=== PATIENT | female | born 1970 | race Caucasian/White ===

== ENCOUNTER 2017-03-27 16:01 | Emergency (ER) | payer MEDICAID ==
[2017-03-27 16:12] VITALS: BMI 40.7
[2017-03-27 16:22] VITALS: TEMP 98.2
[2017-03-27] MEDS ORDERED: Sodium Chloride 0.9% 1,000 ML IV STA (16:24)
--- NOTE | 2017-03-27 16:31 | ED PDOC ---
Arrival/HPI - General Time Seen by Provider: 03/27/17 16:10 Historian: Patient - History of Present Illness Narrative History of Present Illness (Text): 03/27/17 16:20 This 46 yo female with a pmh anemia, asthma, hypertension, diabetes, obesity, hypothyroidism, presents to this emergency department complaining of heavy menstrual period x 2 weeks. Patient stated she has been changing approx. 5 pads daily. Patient noted similar symptom last month. Patient stated she has never had this problem before, except for last month. Patient feels pelvic cramping. Denies urinary symptoms, fever, shortness of breath, chest pain, urinary symptoms, vaginal discharge, dizziness, headache, recent travel, sick contact, trauma, leg swelling, or abnormal gait. Patient stated she saw her pmd for this, and she was given a referral to follow up [facility]. She was also given prescription for Iron supplement. She made an appointment for [facility] for April 06, 2017 Time/Duration: Other (15 days) Symptom Course: Unchanged Context: Home Past Medical History - Provider Review Nursing Documentation Reviewed: Yes - Infectious Disease Hx of Infectious Diseases: None - Tetanus Immunization Tetanus Immunization: Unknown - Cardiac Hx Hypertension: Yes - Pulmonary Hx Asthma: Yes - Neurological Hx Neurological Disorder: No - HEENT Hx HEENT Disorder: No - Renal Hx Renal Disorder: No - Endocrine/Metabolic Hx Hyperthyroidism: Yes Hx Hypothyroidism: Yes - Hematological/Oncological Hx Anemia: Yes - Integumentary Hx Dermatological Disorder: No - Musculoskeletal/Rheumatological Hx Arthritis: Yes (both knees) - Gastrointestinal Hx Gastrointestinal Disorders: No - Genitourinary/Gynecological Hx Genitourinary Disorders: No - Psychiatric Hx Depression: No Hx Substance Use: No - Surgical History Hx Cholecystectomy: Yes - Suicidal Assessment Feels Threatened In Home Enviroment: No Family/Social History Smoking Status: Never Smoked Hx Alcohol Use: No Hx Substance Use: No Hx Substance Use Treatment: No Allergies/Home Meds Allergies/Adverse Reactions: Allergies aspirin Allergy (Verified 03/27/17 16:23) SWELLING Penicillins Allergy (Verified 03/27/17 16:23) SHORTNESS OF BREATH Home Medications: Home Meds Medication Instructions Recorded Confirmed Metformin Hydrochloride [Metformin] 850 mg PO BID 07/30/13 03/27/17 Omeprazole 1 tab PO PRN PRN 07/23/15 03/27/17 SITagliptin [Januvia] 100 mg PO DAILY 07/23/15 03/27/17 Albuterol Sulfate [Proair Hfa] 2 puff IH PRN PRN 01/31/16 03/27/17 Fluticasone/Salmeterol 250/50 1 puff IH BID PRN 01/31/16 03/27/17 [Advair Diskus 250/50] Losartan Potassium 50 mg PO DAILY 01/31/16 03/27/17 Gabapentin [Neurontin] 300 mg PO TID 02/07/16 03/27/17 Alogliptin Benzoate [Alogliptin] 25 mg PO DAILY 03/27/17 03/27/17 Leflunomide [Arava] 20 mg PO DAILY 03/27/17 03/27/17 Levothyroxine [Synthroid] 88 mcg PO DAILY 03/27/17 03/27/17 Mirtazapine [Remeron] 45 mg PO DAILY 03/27/17 03/27/17 Physical Exam Vital Signs Temp Pulse Resp BP Pulse Ox 03/27/17 16:22 98.2 F 98 H 18 151/101 H 98 Temperature: Afebrile Blood Pressure: Hypertensive Pulse: Regular Respiratory Rate: Normal Appearance: Positive for: Well-Appearing, Non-Toxic, Comfortable Pain Distress: None Mental Status: Positive for: Alert and Oriented X 3 - Systems Exam Head: Present: Atraumatic, Normocephalic Pupils: Present: PERRL Extroacular Muscles: Present: EOMI Conjunctiva: Present: Normal Mouth: Present: Moist Mucous Membranes Neck: Present: Normal Range of Motion Respiratory/Chest: Present: Clear to Auscultation, Good Air Exchange. No: Respiratory Distress, Accessory Muscle Use Cardiovascular: Present: Regular Rate and Rhythm, Normal S1, S2. No: Murmurs Abdomen: Present: Normal Bowel Sounds. No: Tenderness, Distention, Peritoneal Signs, Rebound, Guarding Genitourinary/Pelvic Exam: Present: Normal External Genitalia, Vaginal Bleeding (trace of blood seen on vagial canal. No lesion seen. No active bleeding seen. Ms. Vanessa Khan RN was family psychologist). No: Vaginal Discharge Back: Present: Normal Inspection. No: CVA Tenderness Upper Extremity: Present: Normal Inspection, Normal ROM, NORMAL PULSES, Neurovascularly Intact, Capillary Refill < 2s. No: Cyanosis, Edema Lower Extremity: Present: Normal Inspection, NORMAL PULSES, Normal ROM, Neurovascularly Intact, Capillary Refill < 2 s. No: Edema, CALF TENDERNESS Neurological: Present: GCS=15, CN II-XII Intact, Speech Normal, Motor Func Grossly Intact, Normal Sensory Function, Normal Cerebellar Funct, Gait Normal, Memory Normal, Other (Patient has a normal gait. Romberg test was negative) Skin: Present: Warm, Dry, Normal Color. No: Rashes Psychiatric: Present: Alert, Oriented x 3, Normal Insight, Normal Concentration Medical Decision Making ED Course and Treatment: 03/27/17 17:37 Patient is resting comfortably, does not have active vaginal bleeding, denies any chest pain, shortness of breath, or lightheadedness. Patient was not orthostatic in ED. Patient was instructed to follow up with her HAND EDGER in 1-2 days, and to return to ED for worsening symptoms Re-evaluation Time: 17:41 Reassessment Condition: Re-examined, Improved - Lab Interpretations Lab Results: 03/27/17 16:45 03/27/17 16:45 Lab Results 03/27/17 16:45: PT 11.1, INR 1.03, APTT 26.1 03/27/17 16:45: Sodium 139, Potassium 3.6, Chloride 102, Carbon Dioxide 26, Anion Gap 15, BUN 6 L, Creatinine 0.6, Est GFR ( Amer) > 60, Est GFR (Non -Af Amer) > 60, Random Glucose 209 H, Calcium 8.9, Total Bilirubin 0.3, AST 26, ALT 28, Alkaline Phosphatase 125, Total Protein 7.3, Albumin 3.9, Globulin 3.4, Albumin/Globulin Ratio 1.1 03/27/17 16:45: WBC 7.4 D, RBC 4.13, Hgb 8.8 L, Hct 29.5 L, MCV 71.4 L, MCH 21.3 L, MCHC 29.8 L, RDW 17.9 H, Plt Count 336, MPV 10.2, Gran % 79.5 H, Lymph % (Auto) 14.9 L, [place] % (Auto) 3.8, Eos % (Auto) 1.5, Baso % (Auto) 0.3, Gran # 5.91, Lymph # 1.1 L, [place] # 0.3, Eos # 0.1, Baso # 0.02 03/27/17 16:25: Urine Color Yellow, Urine Appearance Clear, Urine pH 6.0, Ur Specific [place] 1.020, Urine Protein Trace H, Urine Glucose (UA) Negative, Urine Ketones Negative, Urine Blood Large H, Urine Nitrate Negative, Urine Bilirubin Negative, Urine Urobilinogen 0.2, Ur Leukocyte Esterase Negative, Urine RBC Tntc, Urine WBC 1 - 3, Ur Epithelial Cells 3 - 4, Urine HCG, Qual Negative I have reviewed the lab results: Yes Interpretation: No sign. chg./baseline - Medication Orders Current Medication Orders: Discontinued Medications Sodium Chloride (Sodium Chloride 0.9%) 1,000 mls @ 999 mls/hr IV .Q1H1M STA Stop: 03/27/17 17:24 Last Admin: 03/27/17 16:50 Dose: 999 mls/hr eMAR Start Stop Document 03/27/17 16:50 AD (Rec: 03/27/17 16:50 AD [id number]) Intravenous Solution Start Date 03/27/17 Start Time 16:50 Disposition/Present on Arrival - Present on Arrival Any Indicators Present on Arrival: No History of DVT/PE: No History of Uncontrolled Diabetes: No Urinary Catheter: No History Surgical Site Infection Following: None - Disposition Have Diagnosis and Disposition been Completed?: Yes Diagnosis: Menorrhagia Disposition: HOME/ ROUTINE Disposition Time: 17:42 Patient Plan: Discharge Patient Problems: Current Active Problems Problem Status Onset Menorrhagia Acute Condition: GOOD Discharge Instructions (ExitCare): Menorrhagia (ED) Additional Instructions: Call private [facility] doctor for follow up visit in 1-2 days. Take home Iron medication as instructed for anemia. Return to emergency if bleeding worsen, dizziness, or fever. Referrals: Yael Rosa MD [Primary Care Provider] - Follow up with primary [facility] [Outside] - [facility] with [facility] [Outside] - Follow up with primary Forms: WORK NOTE
[2017-03-27 17:03] LABS: URINE BILIRUBIN NEGATIVE (NEGATIVE); URINE BLOOD LARGE (NEGATIVE); URINE GLUCOSE (UA) NEGATIVE (NEGATIVE); URINE KETONE NEGATIVE (NEGATIVE); URINE LEUKOCYTE ESTERASE NEGATIVE Leu/uL (NEGATIVE); URINE PROTEIN TRACE mg/dL (<30 mg/dL); URINE UROBILINOGEN 0.2 E.U./dL (<1 E.U./dL)
[2017-03-27 17:04] LABS: BASO # 0.02 K/mm3 (0.0-2.0); BASO % 0.3 % (0.0-3.0); EOS # 0.1 (0.0-0.7); EOS % 1.5 % (1.5-5.0); GRAN # 5.91 (1.4-6.5); GRAN % 79.5 % (50.0-68.0); HEMATOCRIT 29.5 % (36.0-48.0); LYMPH # 1.1 (1.2-3.4); LYMPH % 14.9 % (22.0-35.0); MEAN CELL VOLUME 71.4 fl (80.0-105.0); MEAN CORPUSCULAR HEMOGLOBIN 21.3 pg (25.0-35.0); MEAN CORPUSCULAR HGB CONC 29.8 g/dl (31.0-37.0); MEAN PLATELET VOLUME 10.2 fl (7.0-11.0); MONO # 0.3 (0.1-0.6); MONO % 3.8 % (1.0-6.0); RED CELL DISTRIBUTION WIDTH 17.9 % (11.5-14.5); WHITE BLOOD COUNT 7.4 10^3/ul (4.5-11.0)
[2017-03-27 17:05] LABS: URINE APPEARANCE CLEAR (CLEAR); URINE COLOR YELLOW (YELLOW)
[2017-03-27 17:06] LABS: ALB/GLOB RATIO 1.1 (1.1-1.8); ALKALINE PHOSPHATASE 125 U/L (38-126); ALT/SGPT 28 U/L (7-56); AST/SGOT 26 U/L (14-36); BILIRUBIN,TOTAL 0.3 mg/dL (0.2-1.3); BLOOD UREA NITROGEN 6 mg/dL (7-21); CALCIUM 8.9 mg/dL (8.4-10.5); CARBON DIOXIDE 26 mmol/L (21-33); CHLORIDE 102 mmol/L (98-107); GFR AFRICAN-AMERICAN > 60; GLUCOSE,RANDOM 209 mg/dL (70-110); POTASSIUM 3.6 mmol/L (3.6-5.0); SODIUM 139 mmol/L (132-148); TOTAL PROTEIN 7.3 g/dL (5.8-8.3)
[2017-03-27 17:07] LABS: INR 1.03 (0.93-1.08); PARTIAL THROMBOPLASTIN TIME 26.1 Seconds (23.7-30.8)
[2017-03-27 17:24] LABS: URINE RBC TNTC /hpf (0-2)
[2017-03-27 17:48] VITALS: BP 139/100; PULSE 91; RESP 16; O2SAT 99
== END 2017-03-27 17:57 | disposition home or self-care (01) ==
LOC: ED 16:01
DX: N92.0 Excessive and frequent menstruation with regular cycle (principal); E11.9 Type 2 diabetes mellitus without complications; I10 Essential (primary) hypertension; E03.9 Hypothyroidism, unspecified
CPT/HCPCS: 80053; 81001; 84703; 85025; 85610; 85730; 87086; 99285; J7040